=== PATIENT | female | born 2000 | race Two or more races ===

== ENCOUNTER 2025-04-15 22:40 | Emergency (ER) | payer OTHER ==
[~2025-04-15] VITALS: Ht 165.1 cm; Wt 49.9 kg
[2025-04-15 23:45] VITALS: BP 114/71; O2SAT 99
[2025-04-16] MEDS ORDERED: DIPHENHYDRAMINE HCL 50 MG/ML VIAL 1ML IV STA (00:59)
[2025-04-16] MEDS ORDERED: KETOROLAC TROMETHAMINE 30 MG VIAL IV STA (00:59)
[2025-04-16] MEDS ORDERED: METHYLPREDNISOLONE SOD SUCC 125 MG VIAL IV STA (01:00)
[2025-04-16] MEDS ORDERED: BENADRYL25 MG PO (01:10)
[2025-04-16] MEDS ORDERED: CEPHALEXIN500 MG PO (01:10)
[2025-04-16] MEDS ORDERED: KETO10TA2 PO (01:10)
== END 2025-04-16 02:34 ==
LOC: ER 22:54
DX: S90.861A Insect bite (nonvenomous), right foot, initial encounter (principal); W57.XXXA Bitten or stung by nonvenomous insect and other nonvenomous arthropods, initial encounter; Y93.89 Activity, other specified; Y92.89 Other specified places as the place of occurrence of the external cause; Y99.9 Unspecified external cause status; Z91.013 Allergy to seafood